=== PATIENT | female | born 1980 | race Caucasian/White ===

== ENCOUNTER 2019-03-03 08:00 | Outpatient (CLI) | payer OTHER ==
[~2019-03-03] VITALS: Ht 154.9 cm; Wt 72.7 kg
== END 2019-03-03 23:59 | disposition home or self-care (01) ==
LOC: STAR 08:00 → EDSTATUS 03-05 12:00
PROVIDERS: ATTEND Obstetrics & Gynecology
DX: R06.02 Shortness of breath (principal)
CPT/HCPCS: 36415; 71046; 84703; 85025